=== PATIENT | female | born 1950 | race Caucasian/White ===

== ENCOUNTER 2016-12-13 20:52 | Emergency (ER) | payer MEDICARE ==
[~2016-12-13] VITALS: Ht 160 cm; Wt 105.0 kg
[~2016-12-13 20:52] MED LIST: CYCL5TAB PO; DULO60CA44 PO; LOSA1TAB15 PO; METF500T4 PO; NAPR-681 PO; SERT100T PO; SIMVASTATIN PO
[2016-12-14] MEDS ORDERED: BACITRACIN ZINC OINT UDPKT TOP ONE (04:00)
[2016-12-14 08:25] VITALS: BP 133/77
== END 2016-12-14 09:09 | disposition home or self-care (01) ==
LOC: ER 21:56
DX: S90.424A Blister (nonthermal), right lesser toe(s), initial encounter (principal); E11.9 Type 2 diabetes mellitus without complications; I10 Essential (primary) hypertension; X58.XXXA Exposure to other specified factors, initial encounter; Y93.89 Activity, other specified; Y92.89 Other specified places as the place of occurrence of the external cause; Y99.8 Other external cause status
CPT/HCPCS: 93971; 99284